=== PATIENT | female | born 1990 | race Caucasian/White ===

== ENCOUNTER 2016-11-26 08:58 | Emergency (ER) | payer BC ==
[2016-11-26 09:11] VITALS: BP 116/80; PULSE 65; TEMP 97.8; BMI 21.7
[2016-11-26] MEDS ORDERED: PANTOPRAZOLE SODIUM 40 MG in SODIUM CHLORIDE 100 ML IVPB ONE (09:20)
--- NOTE | 2016-11-26 09:30 | PDOC ---
History of Present Illness - General Chief Complaint: Chest Pain Stated Complaint: CHEST PAIN VS GERD Time Seen by Provider: 11/26/16 09:18 - History of Present Illness Initial Comments: 11/26/16 09:20 Chief complaint: Epigastric pain History of present illness: Patient complains of severe epigastric and right upper quadrant pain since approximately 7 AM. 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 She had heavy [place] food during the night. The pain is described as sharp and radiating from the epigastric area through the central chest. She also describes a "ball or fullness" in the epigastrium. There is mild nausea but there is been no vomiting or diarrhea. The patient has had no recent hematemesis melena or bloody stool. Took Zantac and Pepcid this morning without relief Review of systems: As above. In addition, no shortness of breath, diaphoresis, back pain, visual or focal neurologic symptoms, unsteadiness of gait, fever or chills, cough, urinary tract symptoms. Menses are regular, no prior pregnancies , no possibility of at present. She does admit a mild sore throat for several days. Remainder systems reviewed and found to be negative Past medical history: H. pylori several years ago, treated with antibiotics. Similar symptoms as those above several times in the past, attributed to GERD. Has consulted [facility] administrator but endoscopy was not recommended. ITP in the past, with platelet counts as low as 8000, always asymptomatic, no bleeding, responds quickly to dexamethasone. Last treated with dexamethasone in June of this year, with rebound of platelets to 150,000. No history of cardiac or pulmonary disease. Family history: No known coronary artery disease, father with hypertension, mother of liver cancer. Social history: No tobacco, no nonprescription drugs, occasional social alcohol , none recently. As noted above, patient is a nurse working night shifts in labor and delivery. Physical exam: Alert and oriented well-developed well-nourished no acute distress cheerful and cooperative Afebrile, vital signs normal No pallor or icterus. PERRLA, fundi benign, ENT clear. Specifically, there is no erythema, exudate, or mass in the oropharynx despite a mild sore throat Neck supple without bruit mass or nodes Lungs clear to P&A, full breath sounds throughout bilaterally, no chest wall or rib cage tenderness or deformity CV S1 and S2 normal without murmur rub or gallop pulses full and symmetric no JVD or edema no bruits no tachycardia Abdomen nondistended. Bowel sounds normal. Soft without mass or organomegaly. There is mild to moderate tenderness in the epigastrium and right upper quadrant , and Costello sign is positive. There is no guarding or rebound. There is no lower quadrant tenderness. Extremities no CCE Skin clear, no rash, adequate turgor and wet mucous membranes Impression: Possible exacerbation of intermittent GERD, although there is tenderness over the liver and gallbladder. Costello sign is positive. Possible gallstone/biliary colic, less likely liver inflammation or hepatic hematoma, considering history of ITP Plan: CBC, platelet count, chemistries, sonogram of the liver and gallbladder, trial of proton pump inhibitor, observation and further treatment depending on results. Past History - Past Medical History Allergies/Adverse Reactions: Allergies Allergy/AdvReac Type Severity Reaction Status Date / Time latex Allergy Verified 11/26/16 09:02 Home Medications: Ambulatory Orders Escitalopram Oxalate [Lexapro -] 10 mg PO DAILY 10/22/15 Pantoprazole Sodium [Protonix -] 40 mg PO DAILY #14 tablet.ec 11/26/16 Psychiatric Problems: Yes (ANXIETY, DEPRESSION) Other medical history: QUESTIONABLE GERD - Psycho/Social/Smoking Cessation Hx Anxiety: No Suicidal Ideation: No Smoking History: Never smoked Have you smoked in the past 12 months: No Information on smoking cessation initiated: No Hx Alcohol Use: No Drug/Substance Use Hx: No Substance Use Type: Alcohol *Physical Exam - Vital Signs Last Vital Signs Temp Pulse Resp BP Pulse Ox 97.8 F 65 20 116/80 100 11/26/16 09:10 11/26/16 09:10 11/26/16 09:10 11/26/16 09:10 11/26/16 09:10 ED Treatment Course - LABORATORY CBC & Chemistry Diagram: 11/26/16 09:35 11/26/16 09:35 Medical Decision Making - Medical Decision Making 11/26/16 11:33 Platelet count is adequate at 119,000. White count is normal. Remainder of CBC and chemistries without significant abnormalities Ultrasound shows a normal liver. There is a polyp versus sludge in the gallbladder but no signs of acute inflammation/cholecystitis. No wall thickening. The patient symptoms are much improved after the administration of Protonix. Pain is almost completely resolved. She is tolerating by mouth fluids. Most likely diagnosis is GERD/reflux. Will continue Protonix, dietary management , and patient will follow up with her [facility] administrator for further evaluation as directed. Fully ambulatory and in no significant pain or other distress upon discharge with her father to follow-up as directed *DC/Admit/Observation/Transfer Diagnosis at time of Disposition: Gastroesophageal reflux disease Qualifiers: Esophagitis presence: without esophagitis Qualified Code(s): K21.9 - Gastro- esophageal reflux disease without esophagitis - Discharge Dispostion Disposition: HOME Condition at time of disposition: Improved Admit: No - Prescriptions Prescriptions: Pantoprazole Sodium [Protonix -] 40 mg PO DAILY #14 tablet.ec - Patient Instructions Printed Discharge Instructions: DI for Gastroesophageal Reflux Disease (GERD) Additional Instructions: Medication as directed. Dietary modification. See your [facility] administrator for further evaluation and treatment as directed. Consider endoscopy and retesting for H. pylori.
[2016-11-26 09:31] LABS: PH,URINE 5.5 (4.5-8); URINE APPEARANCE Cloudy; URINE BILIRUBIN Negative (NEGATIVE); URINE BLOOD Negative (NEGATIVE); URINE GLUCOSE (UA) Negative (NEGATIVE); URINE KETONE Negative (NEGATIVE); URINE LEUK ESTERASE Negative (NEGATIVE); URINE NITRITE Negative (NEGATIVE); URINE PROTEIN Negative (NEGATIVE); URINE UROBILINOGEN 0.2 (0.2-1.0)
[2016-11-26] MEDS ORDERED: PANTOPRAZOLE SODIUM 40 MG VIAL ONE (09:46)
[2016-11-26 09:47] LABS: BASOPHIL 0.5 % (0-2.0); EOSINOPHIL 1.7 % (0-4.5); MCH 30.3 pg (25.7-33.7)
[2016-11-26 09:50] LABS: MEAN CELL VOLUME 89.1 fl (80-96); NEUTROPHILS 55.6 % (42.8-82.8); PLATELET COUNT 119 K/MM3 (134-434); WHITE BLOOD COUNT 4.6 K/mm3 (4.0-10.8)
[2016-11-26 10:06] LABS: ALBUMIN 4.3 g/dl (3.5-5.0); ALK PHOS 53 U/L (32-92); ANION GAP 7 (8-16); BILIRUBIN,TOTAL 0.4 mg/dl (0.2-1.0); CALCIUM 8.8 mg/dl (8.4-10.2); CO2 25 mmol/L (22-28); CREATININE 0.7 mg/dl (0.6-1.3); GLUCOSE,RANDOM 87 mg/dl (74-106); SGOT/AST 21 U/L (10-42); SGPT/ALT 10 U/L (10-40); TOT PROT 6.6 g/dl (6.4-8.3)
[2016-11-26 17:35] LABS: URINE COLOR YELLOW
== END 2016-11-26 11:42 | disposition home or self-care (01) ==
LOC: FER 08:58
PROC: 3E033GC Introduction of Other Therapeutic Substance into Peripheral Vein, Percutaneous Approach (ICD-10-PCS; principal; 2016-11-26)
DX: K21.9 Gastro-esophageal reflux disease without esophagitis (principal)
CPT/HCPCS: 36415; 76705-TC; 80053; 81003; 84703; 85025; 99283-25

== ENCOUNTER 2018-11-13 22:26 | Emergency (ER) | payer BC | END 2018-11-14 00:49 | disposition home or self-care (01) | LOC: FER 11-14 00:49 ==